=== PATIENT | male | born 1955 | race Caucasian/White ===

== ENCOUNTER 2020-04-16 10:48 | Inpatient (IN) ==
[2020-04-16 14:18] LABS: Hematocrit 25.7 % (37.5-50.1); Hemoglobin 7.8 g/dL (12.9-16.9); Mean Corpuscular HGB Conc 30.4 g/dL (31.6-35.5); Mean Corpuscular Hemoglobin 26.2 pg (28.0-33.3); Mean Corpuscular Volume 86.2 fL (83.0-100.0); Mean Platelet Volume 8.4 fL (9.4-12.4); Platelet Count 402 K/mcL (140-400); Red Blood Count 2.98 M/mcL (4.19-5.50); Red Cell Distribution Width 14.9 % (11.5-14.5); White Blood Count 11.3 K/mcL (4.3-11.1)
[2020-04-16 14:27] LABS: INR 1.1; Prothrombin Time 12.4 Seconds (9.4-12.1)
[2020-04-16 14:37] LABS: Albumin 2.5 g/dL (3.5-5.7); Bilirubin,Direct 0.1 mg/dL (0.0-0.2); Bilirubin,Indirect 0.1 mg/dL (0.0-1.0); Bilirubin,Total 0.2 mg/dL (0.3-1.0); Calcium 8.1 mg/dL (8.6-10.3); Globulin 2.6 g/dL (2.4-3.5); Potassium 3.6 mEq/L (3.5-5.1); Total Protein 5.1 g/dL (6.4-8.9)
[2020-04-16] MEDS ORDERED: Ringers Solution, Lactated 1,000 ML IVC SCH (15:15)
[2020-04-16] MEDS ORDERED: 0.9 % Sodium Chloride 500 ML ONE (17:05)
[2020-04-16] MEDS: Pantoprazole 40 MG VIAL IVP SCH (17:09)
[2020-04-16] MEDS: Insulin DETEMIR 100 UNIT/ML X5UNITS SQ SCH (21:02)
[2020-04-16] MEDS: QUEtiapine Fumarate 25 MG TABLET PO SCH (21:02)
[2020-04-16] MEDS: Linezolid 600 MG TABLET PO SCH (21:02)
[2020-04-16] MEDS: Ondansetron 4 MG/2 ML VIAL IVP PRN (21:10)
[2020-04-16 23:09] LABS: Hematocrit 22.3 % (37.5-50.1); Hemoglobin 6.8 g/dL (12.9-16.9)
[2020-04-17] MEDS ORDERED: 0.9 % Sodium Chloride 250 ML ONE ×2 (01:03→22:38)
[2020-04-17] MEDS ORDERED: Ondansetron 4 MG/2 ML VIAL IVP ONE ×2 (01:06→05:49)
[2020-04-17 05:49] LABS: Hematocrit 25.1 % (37.5-50.1); Hemoglobin 7.8 g/dL (12.9-16.9); Mean Corpuscular HGB Conc 31.1 g/dL (31.6-35.5); Mean Corpuscular Hemoglobin 27.1 pg (28.0-33.3); Mean Corpuscular Volume 87.2 fL (83.0-100.0); Mean Platelet Volume 8.5 fL (9.4-12.4); Platelet Count 314 K/mcL (140-400); Red Blood Count 2.88 M/mcL (4.19-5.50); Red Cell Distribution Width 14.6 % (11.5-14.5); White Blood Count 14.4 K/mcL (4.3-11.1)
[2020-04-17] MEDS: Pantoprazole 40 MG VIAL IVP SCH (06:05)
[2020-04-17 06:09] LABS: Calcium 7.9 mg/dL (8.6-10.3); Magnesium 1.7 mg/dL (1.6-2.6); Potassium 3.9 mEq/L (3.5-5.1)
[2020-04-17] MEDS: Insulin LISPRO 300 UNITS/3 ML VIAL SQ SCH ×3 (06:55→17:37)
[2020-04-17] MEDS ORDERED: Lidocaine -MPF 2% 2 ML VIAL ONE (09:21)
[2020-04-17] MEDS ORDERED: *HR* Propofol 200 MG/20 ML VIAL IVP ONE (09:21)
[2020-04-17] MEDS ORDERED: *HR* PHENYLEPHRINE 1,000 MCG/10 ML SYRINGE IVP ONE ×2 (09:38→10:36)
[2020-04-17] MEDS ORDERED: Ondansetron 4 MG/2 ML VIAL ONE (09:56)
[2020-04-17] MEDS ORDERED: *HR* Succinylcholine 200 MG/10 ML VIAL IVP ONE (09:58)
[2020-04-17] MEDS ORDERED: *HR* EPINEPHrine 1 MG/10 ML SYRINGE ONE (10:17)
[2020-04-17] MEDS: Linezolid 600 MG TABLET PO SCH (12:35)
[2020-04-17] MEDS: Insulin DETEMIR 100 UNIT/ML X5UNITS SQ SCH ×2 (12:35→20:49)
[2020-04-17] MEDS: Ringers Solution, Lactated 1,000 ML IVC SCH ×2 (14:04→18:11)
[2020-04-17] MEDS: Erythromycin Lactobionate 250 MG in 0.9 % Sodium Chloride 100 ML IVPB SCH ×3 (14:07→23:54)
[2020-04-17] MEDS: Pantoprazole 40 MG in 0.9 % Sodium Chloride Mini Bag 100 ML IVC SCH ×3 (14:08→23:32)
[2020-04-17] MEDS ORDERED: Haloperidol Lactate 5 MG/ML VIAL IVP ONE (18:15)
[2020-04-17] MEDS ORDERED: Haloperidol Lactate 5 MG/ML VIAL IVP STA (18:58)
[2020-04-17] MEDS: QUEtiapine Fumarate 25 MG TABLET PO SCH (20:49)
[2020-04-17 21:07] LABS: Hematocrit 18.8 % (37.5-50.1)
[2020-04-17 21:14] LABS: Hemoglobin 5.8 g/dL (12.9-16.9)
[2020-04-18] MEDS: Insulin LISPRO 300 UNITS/3 ML VIAL SQ SCH ×5 (00:31→23:41)
[2020-04-18] MEDS: Pantoprazole 40 MG in 0.9 % Sodium Chloride Mini Bag 100 ML IVC SCH ×4 (02:12→17:28)
[2020-04-18 03:57] LABS: Hematocrit 22.7 % (37.5-50.1); Hemoglobin 7.2 g/dL (12.9-16.9); Mean Corpuscular HGB Conc 31.7 g/dL (31.6-35.5); Mean Corpuscular Hemoglobin 27.3 pg (28.0-33.3); Mean Platelet Volume 8.8 fL (9.4-12.4); Platelet Count 271 K/mcL (140-400); Red Blood Count 2.64 M/mcL (4.19-5.50); Red Cell Distribution Width 14.1 % (11.5-14.5); White Blood Count 16.5 K/mcL (4.3-11.1)
[2020-04-18 04:18] LABS: Calcium 7.8 mg/dL (8.6-10.3); Potassium 3.8 mEq/L (3.5-5.1)
[2020-04-18] MEDS ORDERED: 0.9 % Sodium Chloride 250 ML ONE (04:34)
[2020-04-18] MEDS: Insulin DETEMIR 100 UNIT/ML X5UNITS SQ SCH ×2 (10:00→20:50)
[2020-04-18] MEDS ORDERED: 0.9 % Sodium Chloride 250 ML IVC PRN (10:23)
[2020-04-18 10:48] LABS: Hematocrit 25.9 % (37.5-50.1); Hemoglobin 8.5 g/dL (12.9-16.9)
[2020-04-18 17:28] LABS: Hematocrit 28.5 % (37.5-50.1); Hemoglobin 9.5 g/dL (12.9-16.9)
[2020-04-18] MEDS: QUEtiapine Fumarate 25 MG TABLET PO SCH (20:53)
[2020-04-18] MEDS ORDERED: *HR* Dextrose 50 % in Water (Vial) 50 ML VIAL IVP PRN (21:06)
[2020-04-18] MEDS ORDERED: D5% in Water 1,000 ML IVC SCH (21:15)
[2020-04-19] MEDS: Pantoprazole 40 MG in 0.9 % Sodium Chloride Mini Bag 100 ML IVC SCH ×5 (01:16→15:41)
[2020-04-19 03:51] LABS: Hematocrit 24.3 % (37.5-50.1); Hemoglobin 8.3 g/dL (12.9-16.9)
[2020-04-19] MEDS: Insulin LISPRO 300 UNITS/3 ML VIAL SQ SCH ×3 (05:35→20:43)
[2020-04-19 07:03] LABS: Hematocrit 26.2 % (37.5-50.1); Hemoglobin 8.7 g/dL (12.9-16.9); Mean Corpuscular HGB Conc 33.2 g/dL (31.6-35.5); Mean Corpuscular Hemoglobin 28.3 pg (28.0-33.3); Mean Corpuscular Volume 85.3 fL (83.0-100.0); Mean Platelet Volume 8.6 fL (9.4-12.4); Platelet Count 197 K/mcL (140-400); Red Blood Count 3.07 M/mcL (4.19-5.50); Red Cell Distribution Width 14.6 % (11.5-14.5); White Blood Count 11.4 K/mcL (4.3-11.1)
[2020-04-19 07:22] LABS: Potassium 3.4 mEq/L (3.5-5.1)
[2020-04-19] MEDS: Insulin DETEMIR 100 UNIT/ML X5UNITS SQ SCH (08:40)
[2020-04-19] MEDS ORDERED: Haloperidol Lactate 5 MG/ML VIAL IVP STA (10:21)
[2020-04-19] MEDS: D5% in 0.45% NACL 1,000 ML IVC SCH (11:01)
[2020-04-19] MEDS ORDERED: QUEtiapine Fumarate 25 MG TABLET PO ONE (11:46)
[2020-04-19] MEDS ORDERED: *HR* LORazepam 2 MG/ML VIAL IM ONE (19:10)
[2020-04-19] MEDS: QUEtiapine Fumarate 25 MG TABLET PO SCH (20:34)
[2020-04-20] MEDS: Pantoprazole 40 MG in 0.9 % Sodium Chloride Mini Bag 100 ML IVC SCH ×2 (00:50→05:45)
[2020-04-20] MEDS: D5% in 0.45% NACL 1,000 ML IVC SCH (04:16)
[2020-04-20] MEDS: Ondansetron 4 MG/2 ML VIAL IVP PRN (04:17)
[2020-04-20 04:25] LABS: Basophils # 0.1 K/mcL (0.0-0.2); Basophils % 0.7 %; Eosinophils # 0.3 K/mcL (0.0-0.6); Eosinophils % 3.3 %; Hematocrit 24.4 % (37.5-50.1); Hemoglobin 7.8 g/dL (12.9-16.9); Immature Granulocytes % 0.2 % (0-4); Lymphocytes # 3.2 K/mcL (0.6-4.6); Lymphocytes % 39.2 %; Mean Corpuscular Hemoglobin 28.3 pg (28.0-33.3); Mean Corpuscular Volume 88.4 fL (83.0-100.0); Mean Platelet Volume 8.8 fL (9.4-12.4); Monocytes # 0.6 K/mcL (0.0-1.3); Platelet Count 154 K/mcL (140-400); Red Blood Count 2.76 M/mcL (4.19-5.50); Red Cell Distribution Width 14.5 % (11.5-14.5); Segmented Neutrophils % 49.6 %; White Blood Count 8.2 K/mcL (4.3-11.1)
[2020-04-20 04:44] LABS: Calcium 7.5 mg/dL (8.6-10.3); Potassium 3.6 mEq/L (3.5-5.1)
[2020-04-20] MEDS: Insulin LISPRO 300 UNITS/3 ML VIAL SQ SCH ×4 (08:17→20:59)
[2020-04-20] MEDS: Insulin DETEMIR 100 UNIT/ML X5UNITS SQ SCH ×2 (12:07→21:00)
[2020-04-20] MEDS: Linezolid 600 MG TABLET PO SCH ×2 (12:41→21:00)
[2020-04-20 20:56] VITALS: BP 142/79
[2020-04-20] MEDS: QUEtiapine Fumarate 25 MG TABLET PO SCH (21:00)
== END 2020-04-20 21:49 | disposition short-term general hospital (02) | DRG 242 ==
LOC: 3ANU → SUATTDRO 15:45
PROVIDERS: ADMIT Internal Medicine; ATTEND Internal Medicine